=== PATIENT | female | born 1935 | race Caucasian/White ===

== ENCOUNTER 2018-02-17 12:26 | Observation (INO) | payer OTHER ==
[2018-02-17] MEDS ORDERED: ACETAMINOPHEN 325 MG TABLET PO PRN (14:00)
[2018-02-17] MEDS ORDERED: ONDANSETRON 4 MG (ODT) TAB PO PRN (14:00)
[2018-02-17] MEDS ORDERED: LOPERAMIDE HCL 2 MG CAPSULE PO PRN (14:00)
[2018-02-17] MEDS ORDERED: POLYETHYL GLY 3350 17 GM/DOSE PO PRN (14:00)
[2018-02-17] MEDS ORDERED: ONDANSETRON 4 MG/2 ML VIAL IV PRN (14:00)
[2018-02-17] MEDS ORDERED: DIPHENHYDRAMINE 25 MG TAB/CAP PO PRN (14:00)
[2018-02-17 14:07] LABS: Urine Appearance CLEAR; Urine Bilirubin NEGATIVE (NEG); Urine Blood 1+ (NEG); Urine Color YELLOW; Urine Glucose NEGATIVE (NEG); Urine Protein NEGATIVE (NEG); Urine Urobilinogen 0.2 mg/dL (0.2-1.0)
[2018-02-17 14:08] LABS: Absolute Lymphocytes (CBC) 2.4 K/uL (0.7-4.9); Absolute Monocytes 0.5 K/uL (0.1-1.3); Absolute Neutrophil 3.1 K/uL (1.8-8.0); Basophils % 1.2 % (0-1.3); Eosinophils % 4.5 % (0-4.4); Hematocrit 42.6 % (36.0-45.0); Lymphocytes % 37.1 % (15.3-44.8); MCH 32.8 pg (27.0-35.0); MCV 96.5 fL (80-100); MPV 7.4 fL (7.6-11.3); Monocytes % 8.1 % (3.3-12.3); RBC Red Blood Cell Count 4.42 M/uL (3.86-4.86)
[2018-02-17 14:11] LABS: Protime INR 1.03
--- NOTE | 2018-02-17 14:31 | RAD REPORT ---
EXAM DESCRIPTION: RAD - Chest Pa And Lat (2 Views) - 02/17/2018 2:25 pm CLINICAL HISTORY: chest pain rbbb Chest pain. COMPARISON: CHEST PA AND LAT 2 VIEW dated 01/30/2015 FINDINGS: The lungs are clear. The heart is normal in size. No displaced fractures. IMPRESSION: No acute or concerning finding suspected.
[2018-02-17 14:44] LABS: ALT/SGPT 15 U/L (12-78); AST/SGOT 18 U/L (15-37); Alkaline Phosphatase 51 U/L (45-117); BUN Blood Urea Nitrogen 16 mg/dL (7-18); Bicarbonate 29 mmol/L (21-32); Bilirubin Direct 0.2 mg/dL (0-0.2); Bilirubin Total 0.5 mg/dL (0.2-1.0); Glucose Level 84 mg/dL (74-106); Magnesium 2.5 mg/dL (1.8-2.4); Phosphorus 3.6 mg/dL (2.5-4.9); Protein, Total 7.4 g/dL (6.4-8.2); Sodium Level 144 mmol/L (136-145); Troponin I < 0.02 ng/mL (0.0-0.045)
[2018-02-17 14:57] VITALS: BMI 24.1
[2018-02-17 15:08] LABS: Urine Microscopic Reflex ORDER UMIC
[2018-02-17 16:33] LABS: Urine Bacteria <20 /HPF (<20); Urine Culture Reflex Order NOT NEEDED; Urine RBC <5 /HPF (NONE SEEN)
[2018-02-17] MEDS: NACHLORIDE 0.45% 1,000 ML IV SCH (16:37)
[2018-02-17] MEDS: ENOXAPARIN 60 MG/0.6 ML SQ SCH ×2 (16:37→21:00)
[2018-02-18 05:55] LABS: Absolute Lymphocytes (CBC) 2.8 K/uL (0.7-4.9); Absolute Monocytes 0.4 K/uL (0.1-1.3); Absolute Neutrophil 1.8 K/uL (1.8-8.0); Eosinophils % 5.4 % (0-4.4); Hematocrit 37.4 % (36.0-45.0); Lymphocytes % 53.6 % (15.3-44.8); MCH 33.1 pg (27.0-35.0); MCV 95.1 fL (80-100); MPV 7.7 fL (7.6-11.3); Monocytes % 7.1 % (3.3-12.3); RBC Red Blood Cell Count 3.94 M/uL (3.86-4.86)
[2018-02-18 06:13] LABS: BUN Blood Urea Nitrogen 17 mg/dL (7-18); Bicarbonate 26 mmol/L (21-32); Glucose Level 86 mg/dL (74-106); Magnesium 2.3 mg/dL (1.8-2.4); Potassium 3.8 mmol/L (3.5-5.1); Sodium Level 145 mmol/L (136-145); Troponin I < 0.02 ng/mL (0.0-0.045)
[2018-02-18] MEDS ORDERED: POTASSIUM CL SA 10 MEQ TAB PO ONE (07:19)
[2018-02-18] MEDS: CLOPIDOGREL 75 MG TABLET PO SCH (08:20)
[2018-02-18] MEDS: ENOXAPARIN 60 MG/0.6 ML SQ SCH ×2 (09:00→21:37)
[2018-02-18] MEDS ORDERED: NA CHLORIDE 0.9% 0 ML ONE (09:13)
[2018-02-18] MEDS ORDERED: HEPA 1000U/500MLS 1,000 UNIT/500 ML BAG IV ONE (09:13)
[2018-02-18] MEDS ORDERED: ATROPINE SULF 1 MG/10 ML SYR IV ONE (09:13)
[2018-02-18] MEDS ORDERED: MIDAZOLAM HCL 2 MG/2 ML INJ ONE ×2 (09:33→10:39)
[2018-02-18] MEDS ORDERED: FENTANYL CITR 100 MCG/2 ML ONE (09:34)
--- NOTE | 2018-02-18 12:45 | P.PN ---
Subjective Date of Service: 02/18/18 Chief Complaint: NO MORE CHESTPAIN. TO DO CATH TODAY. Review of Systems 10-point ROS is otherwise unremarkable Physical Examination - Vital Signs Temperature: 97.6 F Blood Pressure: 137/75 Pulse: 51 Respirations: 18 Pulse Ox (%): 99 - Physical Exam General: Alert, In no apparent distress HEENT: Atraumatic, PERRLA, EOMI Neck: Supple, JVD not distended Respiratory: Clear to auscultation bilaterally, Normal air movement Cardiovascular: Regular rate/rhythm, Normal S1 S2 Gastrointestinal: Normal bowel sounds, No tenderness Musculoskeletal: No tenderness Integumentary: No rashes Neurological: Normal speech, Normal tone, Normal affect Lymphatics: No axilla or inguinal lymphadenopathy - Studies Laboratory Data (last 24 hrs) 02/18/18 05:00: Sodium 145, Potassium 3.8, BUN 17, Creatinine 0.80, Glucose 86, Magnesium 2.3, Troponin I < 0.02 02/18/18 05:00: WBC 5.3 D, Hgb 13.0, Hct 37.4, Plt Count 258 02/17/18 21:33: Troponin I < 0.02 02/17/18 13:40: Sodium 144, Potassium 4.0, BUN 16, Creatinine 1.00, Glucose 84, Phosphorus 3.6, Magnesium 2.5 H, Total Bilirubin 0.5, AST 18, ALT 15, Alkaline Phosphatase 51, Troponin I < 0.02 02/17/18 13:40: PT 12.1, INR 1.03, APTT 29.3 02/17/18 13:40: WBC 6.4, Hgb 14.5, Hct 42.6, Plt Count 303 Medications List Reviewed: Yes Assessment And Plan - Current Problems (Diagnosis) (1) Chest pain Current Visit: Yes Status: Acute Plan: CATH TODAY HISTORY SEEMS TO LEAD TOWARDS CAD RELATED PAIN. Qualifiers: Ischemic chest pain type: unstable angina pectoris (2) RBBB Current Visit: Yes Status: Acute Plan: NOT SURE ABOUT DURATION THIS CAN BE FROM CAD.
[2018-02-18] MEDS: NACHLORIDE 0.45% 1,000 ML IV SCH ×2 (13:23→21:37)
--- NOTE | 2018-02-18 21:56 | OP ---
Date of Procedure: 02/18/2018 Surgeon: Abhay Jackson MD Research Staff Member: Sri Garnica Total conscious sedation was 30 minutes. The patient was brought into the [facility]ote[facility] technician on 02/18/2018 because of unstable angina symptoms. Procedure: Left heart catheterization and selective coronary arteriogram. Findings: Normal coronaries. 6-Slovenian sheath and catheters were used. Angiography in the right common femoral artery was normal. Angio-Seal was used to close the case. There were some calcifications on the outer surface of the c oronaries, but no focal stenosis. There were no complications or blood loss. Postoperative Diagnosis: Unstable angina, normal coronaries, symptoms possibly secondary to atrial f ibrillation. Plan: Plan is for medical therapy with beta blockers and aspirin. She can go home today. I will pr obably do an echocardiogram on her as an outpatient and see her in the office in the next 2 weeks. MARIO Voice ID: [id number] Report ID: [id number]
[2018-02-19 06:09] LABS: Absolute Lymphocytes (CBC) 2.5 K/uL (0.7-4.9); Absolute Monocytes 0.4 K/uL (0.1-1.3); Absolute Neutrophil 2.5 K/uL (1.8-8.0); Basophils % 0.9 % (0-1.3); Eosinophils % 4.8 % (0-4.4); Hematocrit 37.4 % (36.0-45.0); Lymphocytes % 43.7 % (15.3-44.8); MCH 33.3 pg (27.0-35.0); MCV 93.9 fL (80-100); MPV 7.6 fL (7.6-11.3); Monocytes % 6.3 % (3.3-12.3); RBC Red Blood Cell Count 3.99 M/uL (3.86-4.86)
[2018-02-19 06:27] LABS: Magnesium 2.1 mg/dL (1.8-2.4); Potassium 3.9 mmol/L (3.5-5.1)
[2018-02-19] MEDS ORDERED: POTASSIUM CL SA 10 MEQ TAB PO ONE (06:30)
--- NOTE | 2018-02-19 07:51 | CON ---
Date of Consultation: 02/17/2018 Reason For Consultation: Unstable angina. History Of Present Illness: Ms. Chahal is an 82-year-old woman, who has a history of hypertension, dyslipidemia, and hypothyroidism. She takes losartan, Zocor, and Synthroid. Came in with chest pre ssure radiating to both jaws, both arms; tachycardia with a heart rate of 133 that she detected at [facility]. By the time she came to the hospital, her rhythm was normal, her heart rate was normal, and she was pain-free. Had nausea, but no vomiting. Had diaphoresis. Her troponin was positive. Past Medical History: As stated above. Allergies: NONE. Review of Systems: Negative. Social History: Negative. Family History: Negative. Physical Examination: Vital Signs: Stable. She was afebrile. General: She was very pleasant, alert, oriented x3. HEENT Exam: Negative. Neck: Supple without any bruit, lymphadenopathy, JVD, or thyromegaly. Chest: Clear to auscultation and percussion. Cardiac Exam: Revealed a regular rhythm and rate without any murmurs, gallops, or rubs. Abdomen: Benign. Extremities: Revealed no clubbing, cyanosis, or edema. Diagnostic Data: As stated earlier. Impression And Plan: Symptoms are very consistent with unstable angina with substernal pressure genesis g to the jaw and arms. Her EKG is nonspecific. She does report an episode where her heart rate was 133. It is remotely possible that she may have had an episode of atrial fibrillation or supraventric ular tachycardia causing her symptoms. However, she has risk factors for heart disease including her age, hypertension, dyslipidemia, and I recommended we do a heart catheterization to define her coron aubrey anatomy. Her hypertension, dyslipidemia, and hypothyroidism are well controlled on medication. The case was discussed with her and the family. She agreed to proceed with the catheterization. She understands the risk and the benefit of the procedure. Dr. Palomino is aware of the plan. The procedu re will be performed on 02/18/2018. JONATHAN/CHARANJIT Voice ID: [id number] Report ID: [id number]
[2018-02-19 08:02] VITALS: BP 139/72; TEMP 98.2
[2018-02-19] MEDS: CLOPIDOGREL 75 MG TABLET PO SCH (08:43)
[2018-02-19] MEDS: ENOXAPARIN 60 MG/0.6 ML SQ SCH (08:44)
[2018-02-19 08:56] VITALS: O2SAT 94
--- NOTE | 2018-02-19 09:11 | P.DS ---
Admission Date: 02/17/18 Discharge Date: 02/19/18 Disposition: ROUTINE DISCHARGE Discharge Condition: FAIR Reason for Admission: NO MORE CHESTPAIN. - Problems (1) Chest pain Current Visit: Yes Status: Acute Qualifiers: Ischemic chest pain type: unstable angina pectoris (2) RBBB Current Visit: Yes Status: Acute Hospital Course: JOVANA HAD NORMAL CATH YESTERDAY. SHE MAY HAVE HAD CLASSICAL ANGINA JUST WITH TACHYCARDIA OR SPASM. SHE IS GOING HOME ON SMALL DOSE OF B BLANK IN ADDITION TO HER MEDS AND ASPIRIN 81 MG DAILY. Vital Signs/Physical Exam: Temp Pulse Resp BP Pulse Ox 98.2 F 69 16 139/72 97 02/19/18 08:00 02/19/18 08:00 02/19/18 08:00 02/19/18 08:00 02/19/18 08:00 General: Alert, In no apparent distress HEENT: Atraumatic, PERRLA, EOMI Neck: Supple, JVD not distended Respiratory: Clear to auscultation bilaterally, Normal air movement Cardiovascular: Regular rate/rhythm, Normal S1 S2 Gastrointestinal: Normal bowel sounds, No tenderness Musculoskeletal: No tenderness Integumentary: No rashes Neurological: Normal speech, Normal tone, Normal affect Lymphatics: No axilla or inguinal lymphadenopathy Laboratory Data at Discharge: WBC 5.7 K/uL (4.3-10.9) 02/19/18 05:20 Hgb 13.3 g/dL (12.0-15.0) 02/19/18 05:20 Hct 37.4 % (36.0-45.0) 02/19/18 05:20 Plt Count 253 K/uL (152-406) 02/19/18 05:20 PT 12.1 SECONDS (9.5-12.5) 02/17/18 13:40 INR 1.03 02/17/18 13:40 APTT 29.3 SECONDS (24.3-36.9) 02/17/18 13:40 Sodium 143 mmol/L (136-145) 02/19/18 05:20 Potassium 3.9 mmol/L (3.5-5.1) 02/19/18 05:20 BUN 13 mg/dL (7-18) 02/19/18 05:20 Creatinine 0.70 mg/dL (0.55-1.3) 02/19/18 05:20 Glucose 83 mg/dL (74-106) 02/19/18 05:20 Phosphorus 3.6 mg/dL (2.5-4.9) 02/17/18 13:40 Magnesium 2.1 mg/dL (1.8-2.4) 02/19/18 05:20 Total Bilirubin 0.5 mg/dL (0.2-1.0) 02/17/18 13:40 AST 18 U/L (15-37) 02/17/18 13:40 ALT 15 U/L (12-78) 02/17/18 13:40 Alkaline Phosphatase 51 U/L (45-117) 02/17/18 13:40 Troponin I < 0.02 ng/mL (0.0-0.045) 02/18/18 05:00 Home Medications: Citacel Slow Release 1,200 mg PO DAILY 02/17/18 Levothyroxine [Synthroid*] 100 mcg PO DAILY 02/17/18 Losartan Potassium 50 mg PO DAILY 02/17/18 Simvastatin 40 mg PO BEDTIME 02/17/18 Metoprolol Succinate 25 mg PO DAILY #30 tab.er.24h 02/19/18 New Medications: Metoprolol Succinate 25 mg PO DAILY #30 tab.er.24h Diet: AHA
== END 2018-02-19 10:31 | disposition home or self-care (01) ==
LOC: 4TH 12:42
PROVIDERS: ADMIT Internal Medicine; ATTEND Internal Medicine
DX: I20.0 Unstable angina (principal); I10 Essential (primary) hypertension; I45.10 Unspecified right bundle-branch block; E78.5 Hyperlipidemia, unspecified; E03.9 Hypothyroidism, unspecified
CPT/HCPCS: 36415 ×3; 71046; 80048 ×3; 80076; 82306; 82607; 83735 ×3; 84100; 84443; 84484 ×3; 85025 ×3; 85610; 85730; 87086; 87088; 93454; C1760; C1893; G0378; G0379; J1650 ×3; J2250 ×2; J3010; 81003; 81015; 93005; J0583

== ENCOUNTER 2024-06-14 10:57 | Day surgery (SDC) | payer OTHER ==
[2024-06-12 15:50] LABS: Absolute Basophils 0.1 K/uL (0-0.5); Absolute Eosinophils 0.3 K/uL (0-0.5); Absolute Lymphocytes (CBC) 1.8 K/uL (0.7-4.9); Absolute Monocytes 0.4 K/uL (0.1-1.3); Absolute Neutrophil 3.1 K/uL (1.8-8.0); Basophils % 0.9 % (0-1.3); Eosinophils % 5.8 % (0-4.4); Hematocrit 34.2 % (36.0-45.0); Lymphocytes % 31.8 % (15.3-44.8); MCH 32.4 pg (27.0-35.0); MCV 92.6 fL (80-100); MPV 7.3 fL (7.6-11.3); Monocytes % 7.3 % (3.3-12.3); Neutrophils % 54.2 % (41.7-73.7); Nucleated Red Blood Cells % 0.1 % (0-0); Platelets 294 thou/uL (152-406); RBC Red Blood Cell Count 3.69 M/uL (3.86-4.86); Red Cell Distribution Width 14.3 % (12.1-15.2)
[2024-06-12 15:52] LABS: PT Prothrombin Time 12.5 SECONDS (9.4-12.5); PTT, Activated Partial Thromb 30.5 SECONDS (24.3-36.9); Protime INR 1.19
--- NOTE | 2024-06-12 15:54 | RAD REPORT ---
EXAM: Chest Pa And Lat (2 Views) HISTORY: 88 years Female Pre-op pending heart catheterization COMPARISON: 02/17/2018 FINDINGS: LUNGS/PLEURA: The lungs are clear. No pleural effusions or pneumothorax. No pulmonary edema. MEDIASTINUM: The mediastinal silhouette is within normal limits. CARDIAC: The cardiac silhouette is within normal limits. UPPER ABDOMEN: No significant abnormality. BONES: No acute abnormality. LINES/TUBES/OTHER: N/A IMPRESSION: No evidence of acute cardiopulmonary disease.
[2024-06-12 15:55] LABS: Anion Gap 7.8 mEq/L (5.0-15.0); Potassium 3.8 mEq/L (3.5-5.1)
[2024-06-14] MEDS ORDERED: NA CHLORIDE 0.9% 500 ML ONE (11:00)
[2024-06-14] MEDS ORDERED: HEPA 1000U/500MLS 2,000 UNIT/1,000 ML BAG IV ONE (11:59)
[2024-06-14] MEDS ORDERED: LIDOCAINE 1% 20 ML MDV ONE (12:00)
[2024-06-14] MEDS ORDERED: VERAPAMIL HCL 10 MG/4 ML VIAL IV ONE (12:00)
[2024-06-14] MEDS ORDERED: FENTANYL CITR 100 MCG/2 ML ONE (12:00)
[2024-06-14] MEDS ORDERED: HEPARIN 5000 UNIT/ML 1 ML VIAL ONE (12:00)
[2024-06-14] MEDS ORDERED: MIDAZOLAM HCL 2 MG/2 ML INJ ONE (12:00)
[2024-06-14] MEDS ORDERED: HEPARIN 10,000 UNIT/10 ML VIAL IV ONE (12:00)
[2024-06-14] MEDS ORDERED: ATROPINE SULF 1 MG/10 ML SYR IV ONE (12:01)
[2024-06-14] MEDS ORDERED: ASPIRIN 325 MG TAB ONE (12:01)
[2024-06-14] MEDS ORDERED: CLOPIDOGREL 75 MG TABLET ONE (12:01)
[2024-06-14] MEDS ORDERED: TICAGRELOR 90 MG TABLET PO ONE (12:01)
[2024-06-14] MEDS ORDERED: NITROGLYCERIN/D5W 50 MG/250 ML BTL IV ONE (12:22)
--- NOTE | 2024-06-14 12:33 | EKG ---
Test Date: 2024-06-12 Test Time: 16:18:25 Acting Section Chief: EHSAN MEASUREMENT RESULTS: Intervals: Rate: 57 NE: 186 QRSD: 102 QT: 474 QTc: 461 [place]: P: 86 NE: 186 QRS: 76 T: 75 INTERPRETIVE STATEMENTS: Sinus bradycardia Incomplete right bundle branch block Septal infarct, age undetermined Abnormal ECG Compared to ECG 02/17/2018 13:35:11 Incomplete right bundle-branch block now present Myocardial infarct finding now present Sinus rhythm no longer present Atrial premature complex(es) no longer present Right bundle-branch block no longer present Electronically Signed On 06-14-24 12:30:41 GOLF COACH by Driss Owen
[2024-06-14 14:32] VITALS: TEMP 97.8
[2024-06-14 16:03] VITALS: BP 135/70; O2SAT 97
--- NOTE | 2024-06-14 23:08 | OP ---
Date of Procedure: 06/14/2024 Surgeon: JARRED WHITE Procedures Performed: 1. Selective coronary angiogram. 2. Left heart catheterization. Indication: Unstable angina. Access: Right radial artery 6-Slovak, closed with TR band. Complications: None. Bleeding: Less than 50 mL. Anesthesia: Total sedation time is 45 minutes, used fentanyl, Versed. Description Of Procedure: After risks, benefits, and alternatives were explained, the patient agreed to procedure and signed informed consent. The patient was brought into cardiac catheterization labo [facility], prepped and draped in usual sterile fashion. Then, I accessed right radial artery using pedi atric micropuncture kit, placed 6-Slovak Slender sheath, and took 5-Slovak Bishop 4 catheter over J-wi re into the aortic root and across the aortic valve, measured the LVEDP. Pullback did not record any gradient and then engaged left main, took standard views, and then the RCA, took standard views, and removed the catheter and the sheath, placed TR band with good hemostasis. Findings: 1. Left main, large and normal. 2. LAD; proximal segment large and normal. Mid segment to the artery tapers down with 50% stenosis. Mid to distal, there is focal 40% stenosis. Diagonal 1 branch has 40% stenosis proximally. 3. Left circumflex, small, nondominant with luminal irregularities. 4. RCA, moderate size and dominant, proximal 30%, mid long 40% tubular stenosis. 5. LVEDP normal at 7 mmHg. Conclusion: Moderate coronary artery disease with normal LVEDP. Recommendation: Medical management. SR/MODL Voice ID: [id number] Report ID: [id number]
== END 2024-06-14 15:30 | disposition home or self-care (01) ==
LOC: PRE 10:57 → CCL 15:30
PROVIDERS: ATTEND Internal Medicine
DX: I25.110 Atherosclerotic heart disease of native coronary artery with unstable angina pectoris (principal); I82.412 Acute embolism and thrombosis of left femoral vein; I10 Essential (primary) hypertension; E78.2 Mixed hyperlipidemia; Z79.01 Long term (current) use of anticoagulants; Z79.899 Other long term (current) drug therapy
CPT/HCPCS: 36415; 71046; 76937; 80048; 85025; 85610; 85730; 93005; 93458; 99152; 99153; C1893; J0461; J1644; J2003; J2250; J3010; J7040; Q9966